=== PATIENT | male | born 1965 | race Caucasian/White ===

== ENCOUNTER 2019-01-08 20:20 | Emergency (ER) | payer SELFPAY ==
[2019-01-08] MEDS: ONDANSETRON 4 MG INJ IM (20:48)
[2019-01-08] MEDS: LIDOCAINE/MYLANTA 40 ML BTL PO (20:49)
[2019-01-08] MEDS: BELLADONNA/PHENOBARBITAL TAB PO (20:49)
== END 2019-01-09 08:15 | disposition home or self-care (01) ==
LOC: E/R 20:20
DX: F10.920 Alcohol use, unspecified with intoxication, uncomplicated (principal); F17.210 Nicotine dependence, cigarettes, uncomplicated; R40.2142 Coma scale, eyes open, spontaneous, at arrival to emergency department; R40.2362 Coma scale, best motor response, obeys commands, at arrival to emergency department; R40.2242 Coma scale, best verbal response, confused conversation, at arrival to emergency department
CPT/HCPCS: 80307; 96372; 99284-25